=== PATIENT | female | born 1985 | race African-American/Black ===

== ENCOUNTER 2022-08-27 00:26 | Emergency (ER) | payer MEDICAID ==
[~2022-08-27] VITALS: Ht 152.4 cm; Wt 73.8 kg
[2022-08-27 03:40] VITALS: BP 141/95
[2022-08-27 06:55] LABS: CHLORIDE 105 mEq/L (98-107)
[2022-08-27 07:00] LABS: BASOPHILS % 0.1 % (0.0-2.0); HEMATOCRIT. 36.9 % (36.0-48.0); LYMPHOCYTES % 7.5 % (20.0-50.0); MEAN CORPUSCULAR HEMOGLOBIN 25.5 pg (28.0-32.0); MEAN CORPUSCULAR VOLUME 78.5 fL (81.0-99.0); MEAN PLATELET VOLUME 7.4 fl (7.4-10.4); MONOCYTES % 4.3 % (2.0-8.0); NEUTROPHILS % 88.1 % (40.0-76.0); PLATELET 494 x1000/uL (130-400); RED CELL DISTRIBUTION WIDTH 19.1 % (11.6-14.6)
[2022-08-27 07:16] LABS: HCG SCREEN NEGATIVE
[2022-08-27] MEDS ORDERED: T3 PO ×3 (09:17→10:48)
== END 2022-08-27 10:47 | disposition home or self-care (01) ==
LOC: ER 00:26
DX: D25.1 Intramural leiomyoma of uterus (principal); D25.2 Subserosal leiomyoma of uterus; R53.1 Weakness; E28.2 Polycystic ovarian syndrome; N80.03 Adenomyosis of the uterus
CPT/HCPCS: 36415; 76830; 76856; 80053; 81025; 84703; 85025; 86850; 86900; 99284